=== PATIENT | female | born 2000 | race Caucasian/White ===

== ENCOUNTER 2023-01-09 22:40 | Emergency (ER) | payer OTHER ==
[~2023-01-09] VITALS: Ht 162.6 cm; Wt 68.2 kg
[2023-01-09] MEDS ORDERED: LURA20TA PO (22:43)
[2023-01-09 22:55] VITALS: BP 141/106
[2023-01-09 23:41] LABS: EOSINOPHILS % (AUTO) 1.9 % (1.0-6.0); HEMATOCRIT 38.7 % (36-46); HEMOGLOBIN 12.8 g/dL (12.0-16.0); LYMPHOCYTES # (AUTO) 1.8 K/uL (1.0-4.8); LYMPHOCYTES % (AUTO) 23.9 % (22.0-44.0); MEAN CORPUSCULAR HEMOGLOBIN 26.7 pg (26.0-34.0); MEAN CORPUSCULAR VOLUME 81 fL (80-100); MONOCYTES # (AUTO) 0.5 K/uL (0.1-1.0); MONOCYTES % (AUTO) 6.4 % (2.0-9.0); NEUTROPHILS # (AUTO) 5.1 K/uL (1.8-7.7); NEUTROPHILS % (AUTO) 66.8 % (40.0-70.0); PLATELET COUNT (AUTO) 299 K/uL (150-450); RED BLOOD CELL COUNT(AUTO) 4.78 MIL/uL (4.00-5.20); RED CELL DISTRIBUTION WIDTH 14.9 % (11.5-14.5)
[2023-01-09 23:47] LABS: ANION GAP 7 mmol/L (8-16); CALCIUM, TOTAL 9.1 mg/dL (8.8-10.5); CARBON DIOXIDE 29 mmol/L (22-29); CHLORIDE 105 mmol/L (98-107); CREATININE 0.59 mg/dL (0.60-1.30); GLOMERULAR FILTR. RATE CALC > 60 mL/min (>60); GLUCOSE,RANDOM 98 mg/dL (70-110); POTASSIUM 3.8 mmol/L (3.5-5.1); SODIUM SERUM 141 mmol/L (136-145); UREA NITROGEN, BLOOD 8 mg/dL (7-18)
[2023-01-09 23:50] LABS: AMPHET/METH SCREEN,URINE NEGATIVE (NEGATIVE); BARBITURATE SCREEN, URINE NEGATIVE (NEGATIVE); BENZODIAZEPINES SCREEN,URINE NEGATIVE (NEGATIVE); CANNABINOID SCREEN,URINE POSITIVE (NEGATIVE); COCAINE SCREEN,URINE NEGATIVE (NEGATIVE); METHADONE SCREEN, URINE NEGATIVE (NEGATIVE); OPIATE SCREEN,URINE NEGATIVE (NEGATIVE); PHENCYCLIDINE SCREEN,URINE NEGATIVE (NEGATIVE)
[2023-01-09 23:54] LABS: ALANINE AMINOTRANSFERASE 12 U/L (12-78); ALBUMIN 4.2 g/dL (3.4-5.0); ALKALINE PHOSPHATASE 69 U/L (46-116); ASPARTATE AMINOTRANSFERASE 13 U/L (15-37); BILIRUBIN,TOTAL 0.2 mg/dL (0.1-1.0); TOTAL PROTEIN, SERUM 7.6 g/dL (6.4-8.2)
[2023-01-10] MEDS ORDERED: ONDA-104 PO (00:18)
== END 2023-01-10 00:25 | disposition home or self-care (01) ==
LOC: EMS 22:44
DX: F20.9 Schizophrenia, unspecified (principal); F29 Unspecified psychosis not due to a substance or known physiological condition; F17.210 Nicotine dependence, cigarettes, uncomplicated; F12.90 Cannabis use, unspecified, uncomplicated
CPT/HCPCS: 99284; 80053; 85025; 36415; 80307 ×2; G0480

== ENCOUNTER 2023-03-19 19:39 | Emergency (ER) | payer OTHER ==
[~2023-03-19] VITALS: Ht 165.1 cm; Wt 68.2 kg
[~2023-03-19 19:39] MED LIST: LURA20TA PO; ONDA-104 PO
[2023-03-19] MEDS ORDERED: CARI1.5C PO (19:46)
[2023-03-19] MEDS ORDERED: FLUT10.67 IH (19:46)
[2023-03-19] MEDS ORDERED: CARI3CAP PO (19:46)
[2023-03-19] MEDS ORDERED: LURA20TA2 PO (19:46)
[2023-03-19] MEDS ORDERED: ALBU18HF12 IH (19:46)
[2023-03-19 22:00] VITALS: BP 132/90
[2023-03-19] MEDS ORDERED: IBUPROFEN 600 MG TABLET PO ONE (22:30)
[2023-03-19] MEDS ORDERED: BACLOFEN 10 MG TABLET PO ONE (22:30)
[2023-03-19 23:12] LABS: COVID AG,FIA SOURCE NASOPHARYNGEAL
[2023-03-19 23:16] LABS: APPEARANCE,URINE CLEAR (CLEAR); BILIRUBIN,URINE NEGATIVE (NEGATIVE); GLUCOSE, URINE (UA) NEGATIVE (NEGATIVE); KETONES,URINE NEGATIVE (NEGATIVE); LEUKOCYTE ESTERASE ,URINE NEGATIVE (NEGATIVE); NITRATE,URINE NEGATIVE (NEGATIVE); OCCULT BLOOD,URINE NEGATIVE (NEGATIVE); PH,URINE 6.5 (5.0-8.0); PROTEIN,URINE NEGATIVE (NEGATIVE); SPECIFIC GRAVITIY, URINE 1.013 (1.003-1.030); UROBILINOGEN,URINE <=1.0 mg/dL (<=1.0)
[2023-03-19 23:34] LABS: BACTERIA,URINE None Seen /HPF (None Seen); RBC,URINE None Seen /HPF (0-2); SQUAMOUS EPITHELIAL CELL,UR Few /LPF (None Seen); WBC,URINE None Seen /HPF (0-5)
== END 2023-03-19 23:43 | disposition home or self-care (01) ==
LOC: EMS 19:40
DX: G83.4 Cauda equina syndrome (principal); M54.17 Radiculopathy, lumbosacral region; F41.9 Anxiety disorder, unspecified; J45.909 Unspecified asthma, uncomplicated; F32.A Depression, unspecified; F17.210 Nicotine dependence, cigarettes, uncomplicated; F12.90 Cannabis use, unspecified, uncomplicated; Z20.822 Contact with and (suspected) exposure to COVID-19
CPT/HCPCS: 81001; 84703; 99283

== ENCOUNTER 2023-08-15 18:55 | Emergency (ER) | payer OTHER ==
[~2023-08-15] VITALS: Ht 165.1 cm; Wt 65.9 kg
[~2023-08-15 18:55] MED LIST changes: +ALBU18HF12 IH; +CARI1.5C PO; +CARI3CAP PO; +FLUT10.67 IH; +LURA20TA2 PO; -ONDA-104 PO
[2023-08-15 19:58] LABS: COVID AG,FIA SOURCE NASAL SWAB
[2023-08-15 20:18] LABS: SARS-COV2 (COVID) ANTIGEN,FIA Negative (Negative)
[2023-08-15 20:19] LABS: INFLUENZA TYPE A NEGATIVE FOR TYPE A (NEGATIVE); INFLUENZA TYPE B NEGATIVE FOR TYPE B (NEGATIVE)
[2023-08-15 21:06] VITALS: BP 132/77; PULSE 80; RESP 18; TEMP 98.3
== END 2023-08-15 21:15 | disposition home or self-care (01) ==
LOC: EMS 18:56
DX: B34.9 Viral infection, unspecified (principal); F41.9 Anxiety disorder, unspecified; J45.909 Unspecified asthma, uncomplicated; F32.A Depression, unspecified; F17.210 Nicotine dependence, cigarettes, uncomplicated; F12.90 Cannabis use, unspecified, uncomplicated; Z20.822 Contact with and (suspected) exposure to COVID-19
CPT/HCPCS: 87804; 99283